=== PATIENT | female | born 1960 | race Caucasian/White ===

== ENCOUNTER 2017-07-16 12:54 | Emergency (ER) | payer MEDICAID ==
[~2017-07-16] VITALS: Ht 157.5 cm; Wt 40.5 kg
[2017-07-16] MEDS ORDERED: CARBAMIDE PEROXIDE 6.5% OTIC SOLN 15ML RIGHT EAR ONE (18:30)
[2017-07-16 19:38] VITALS: BP 122/84
== END 2017-07-16 20:13 | disposition home or self-care (01) ==
LOC: ER 13:35
DX: H61.21 Impacted cerumen, right ear (principal); B37.0 Candidal stomatitis; H92.03 Otalgia, bilateral
CPT/HCPCS: 69210; 99284